=== PATIENT | male | born 2000 | race African-American/Black ===

== ENCOUNTER 2020-11-05 08:48 | Emergency (ER) | payer OTHER ==
[~2020-11-05] VITALS: Ht 182.9 cm; Wt 70.8 kg
[2020-11-05 08:50] VITALS: BP 120/79
--- NOTE | 2020-11-05 08:56 | NUR ---
PT AMBULATED TO BED 12.
--- NOTE | 2020-11-05 09:01 | NUR ---
20 Y/O MALE C/O MOUTH PAIN 05/13 DESCRIBES ACHING RADIATING TO RIGHT SIDE OF MOUTH X1DAY. PT STATES HE SAW A DENTIST [id number] AND WAS TOLD HE HAD AN ABCSESS IN WISDOM TOOTH AND NEEDED IT PULLED. PT WAS TOLD IT WOULD BE $250 BUT PT UNABLE TO PAY. DENIES PMH ALLERGIES: IBUPROFEN
--- NOTE | 2020-11-05 09:10 | NUR ---
Dr. Roman at pt bedside for further evaluation.
[2020-11-05] MEDS ORDERED: oxyCODONE/APAP 5/325 MG 1 TAB TAB PO ONE (09:55)
[2020-11-05 10:03] VITALS: BP 120/79
--- NOTE | 2020-11-05 10:03 | NUR ---
Patient discharged with v/s stable. Written and verbal after care instructions given and explained. Patient verbalized understanding. Ambulatory with steady gait. All questions addressed prior to discharge. Advised to follow up with PMD.
== END 2020-11-05 10:03 | disposition home or self-care (01) ==
LOC: MED 08:48
DX: K01.1 Impacted teeth (principal)
CPT/HCPCS: 99283

== ENCOUNTER 2023-01-26 13:34 | Emergency (ER) | payer OTHER ==
[~2023-01-26] VITALS: Ht 182.9 cm; Wt 85.7 kg
[2023-01-26 13:39] VITALS: BP 127/87; PULSE 93; RESP 20; TEMP 98; O2SAT 100
[2023-01-26] MEDS ORDERED: HYDROcodone/APAP 5/325 MG 1 TAB TAB PO ONE (14:25)
--- NOTE | 2023-01-26 14:48 | NUR ---
PT TAKEN TO CT VIA [facility]
[2023-01-26] MEDS ORDERED: CYCL-711 PO (15:58)
[2023-01-26] MEDS ORDERED: BACTO TP (15:58)
[2023-01-26] MEDS ORDERED: IBUP-2213 PO (15:58)
[2023-01-26 16:13] VITALS: O2SAT 100
--- NOTE | 2023-01-26 16:15 | NUR ---
Patient discharged with v/s stable. Written and verbal after care instructions given and explained. Patient alert, oriented and verbalized understanding of instructions. Ambulatory with steady gait. All questions addressed prior to discharge. ID band removed. Patient advised to follow up with PMD. Rx of FLEXERIL given. Patient educated on indication of medication including possible reaction and side effects. Opportunity to ask questions provided and answered.
== END 2023-01-26 16:15 | disposition home or self-care (01) ==
LOC: MED 13:34
DX: S05.12XA Contusion of eyeball and orbital tissues, left eye, initial encounter (principal); S00.03XA Contusion of scalp, initial encounter; S20.20XA Contusion of thorax, unspecified, initial encounter; S40.011A Contusion of right shoulder, initial encounter; S40.022A Contusion of left upper arm, initial encounter; S30.811A Abrasion of abdominal wall, initial encounter; S30.812A Abrasion of penis, initial encounter; S80.811A Abrasion, right lower leg, initial encounter; F17.210 Nicotine dependence, cigarettes, uncomplicated; Z79.899 Other long term (current) drug therapy; Y04.2XXA Assault by strike against or bumped into by another person, initial encounter; Y93.89 Activity, other specified; Y92.89 Other specified places as the place of occurrence of the external cause; Y99.8 Other external cause status
CPT/HCPCS: 70450; 71250; 72125; 90471; 90715; 99285